=== PATIENT | male | born 1995 | race African-American/Black ===

== ENCOUNTER → 2021-12-28 | Emergency (ER) | payer SELFPAY ==
[~2021-12-28] VITALS: Ht 177.8 cm; Wt 68.0 kg
[~2021-12-28] MED LIST: ACETAMINOPHEN 500 MG TABLET PO ONE; IBUPROFEN 200 MG TABLET. PO ONE
[2021-12-28 23:38] VITALS: BP 126/74
--- NOTE | 2021-12-28 23:55 | PHYS DOC ---
Past Medical History Past Surgical History: No Surgical History General Adult EDM: Chief Complaint: MULTIPLE TRAUMA/FALL HPI: HPI: Patient is a 26 year old male who was brought here by EMS for evaluation of left wrist and left elbow injury. Patient said he was running, he tripped and fell down, hit his left wrist and elbow on the floor. Patient denies any head or neck injury. Patient denies any back pain, no hip pain, no pelvic pain, no lower extremity pain. Patient said he is up-to-date on his tetanus vaccination status. Review of Systems: Review of Systems: Constitutional: Denies fever or chills. [] Eyes: Denies change in visual acuity. [] HENT: Denies nasal congestion or sore throat. [] Respiratory: Denies cough or shortness of breath. [] Cardiovascular: Denies chest pain or edema. [] GI: Denies abdominal pain, nausea, vomiting, bloody stools or diarrhea. [] : Denies dysuria. [] Musculoskeletal: left wrist and left elbow contusion. Integument: Denies rash. [] Neurologic: Denies headache, focal weakness or sensory changes. [] Endocrine: Denies polyuria or polydipsia. [] Lymphatic: Denies swollen glands. [] Psychiatric: Denies depression or anxiety. [] Heart Score: C/O Chest Pain: N/A Risk Factors: Risk Factors: DM, Current or recent (<one month) smoker, HTN, HLP, family history of CAD, obesity. Risk Scores: Score 0 - 3: 2.5% MACE over next 6 weeks - Discharge Home Score 4 - 6: 20.3% MACE over next 6 weeks - Admit for Clinical Observation Score 7 - 10: 72.7% MACE over next 6 weeks - Early Invasive Strategies Current Medications: Current Medications Medications (Trade) Dose Ordered Sig/Dez Start Time Stop Time Status Last Admin Dose Admin Acetaminophen (Tylenol) 1,000 mg 1X ONCE 12/28/21 23:45 12/28/21 23:46 UNV Ibuprofen (Motrin) 600 mg 1X ONCE 12/28/21 23:45 12/28/21 23:46 UNV Physical Exam: PE: Constitutional: Well developed, well nourished, no acute distress, non-toxic appearance. [] HENT: Normocephalic, atraumatic, bilateral external ears normal, oropharynx [address], no oral exudates, nose normal. [] Eyes: PERRLA, EOMI, conjunctiva normal, no discharge. [] Neck: Normal range of motion, no tenderness, supple, no stridor. [] Cardiovascular:Heart rate regular rhythm, no murmur [] Lungs & Thorax: Bilateral breath sounds clear to auscultation [] Abdomen: Bowel sounds normal, soft, no tenderness, no masses, no pulsatile masses. [] Skin: Warm, dry, no erythema, no rash. [] Back: No tenderness, no CVA tenderness. [] Extremities: skin abrasion on the palmar surface at the radial site of left palm, tender to palpation. back of left elbow with skin abrasion. There is full range of motion of left elbow. Neurologic: Alert and oriented X 3, normal motor function, normal sensory function, no focal deficits noted. [] Psychologic: Affect normal, judgement normal, mood normal. [] Current Patient Data: Vital Signs: Vital Signs Date Time Temp Pulse Resp B/P (MAP) Pulse Ox O2 Delivery O2 Flow Rate FiO2 12/28/21 23:38 97.8 71 16 126/74 (91) 99 Room Air 97.8 EKG: EKG: [] Radiology/Procedures: Radiology/Procedures: [][facility] [address] [facility] [place], [place] [id number] IMAGING REPORT Signed PATIENT: ANNE NARANJO ACCOUNT: [id number] : 1995 LOCATION: ER AGE: 26 SEX: M EXAM STATUS: REG ER ORD. PHYSICIAN: JAYDEN AZUL DO REASON: fell, left wrist injury PROCEDURE: WRIST 3V LEFT XR ELBOW COMPLETE_LEFT 3+VIEWS, XR LT WRIST 3VIEWS 12/28/2021 11:42 PM INDICATION: Fall, left elbow injury. COMPARISON: None available. TECHNIQUE: 3 views the left elbow and 3 views of the left wrist are provided. FINDINGS/ IMPRESSION: No significant elbow joint effusion. There is no acute fracture or dislocation. Carpals, metacarpals and phalanges are intact. Joint spaces are maintained. Bone mineralization is within normal limits. Regional soft tissues are within normal limits. There is no soft tissue gas or osseous erosion. No radiopaque foreign body. Electronically signed by: Lorraine Ortiz MD (12/29/2021 12:32 AM) [facility] DICTATED and SIGNED BY: LORRAINE ORTIZ MD DATE: 12/29/2130 Course & Med Decision Making: Course & Med Decision Making Pertinent Labs and Imaging studies reviewed. (See chart for details) a universal wrist splint was applied to left wrist. Dragon Disclaimer: Dragon Disclaimer: This electronic medical record was generated, in whole or in part, using a voice recognition dictation system. Departure Departure Impression: Primary Impression: Contusion of left wrist, initial encounter Additional Impression: Left elbow contusion Disposition: HOME / SELF CARE / HOMELESS Condition: STABLE Patient Instructions: Elbow Contusion, Wrist Sprain with Rehab-SportsMed Additional Instructions: Follow up with your doctor in 10 days for reevaluation of your left wrist injury with repeat xray of your left wrist. wear the splint until then. JAYDEN AZUL DO December 28, 2021 23:55
--- NOTE | 2021-12-29 00:35 | RAD ---
XR ELBOW COMPLETE_LEFT 3+VIEWS, XR LT WRIST 3VIEWS 12/28/2021 11:42 PM INDICATION: Fall, left elbow injury. COMPARISON: None available. TECHNIQUE: 3 views the left elbow and 3 views of the left wrist are provided. FINDINGS/ IMPRESSION: No significant elbow joint effusion. There is no acute fracture or dislocation. Carpals, metacarpals and phalanges are intact. Joint spaces are maintained. Bone mineralization is within normal limits. R egional soft tissues are within normal limits. There is no soft tissue gas or osseous erosion. No rad iopaque foreign body. Electronically signed by: Winter Ortiz MD (12/29/2021 12:32 AM) [facility]
== END | disposition home or self-care (01) ==
LOC: ER 23:20
DX: S60.212A Contusion of left wrist, initial encounter (principal); W01.198A Fall on same level from slipping, tripping and stumbling with subsequent striking against other object, initial encounter; Y93.89 Activity, other specified; Y92.89 Other specified places as the place of occurrence of the external cause; Y99.8 Other external cause status
CPT/HCPCS: 29125; 73080; 73120; 99284